=== PATIENT | female | born 1960 | race Caucasian/White ===

== ENCOUNTER 2017-05-23 10:15 | Emergency (ER) | payer SELFPAY ==
[2017-05-23] MEDS ORDERED: NITROGLYCERIN 0.4 MG TAB SL ONE (10:22)
[2017-05-23] MEDS ORDERED: SODIUM CHLORIDE 0.9% FLUSH 10 ML SOL IV PRN (10:23)
[2017-05-23] MEDS ORDERED: ASPIRIN 81 MG CHEWABLE CTB PO STA (10:23)
[2017-05-23] MEDS ORDERED: NITROGLYCERIN 0.4 MG TAB SL PRN (10:23)
[2017-05-23 10:42] VITALS: TEMP 98.3
[2017-05-23 10:44] LABS: ALBUMIN 4.7 gm/dl (3.4-5.0); ALT 58 IU/L (14-63); CALCIUM 9.7 mg/dl (8.5-10.1); GLOM FILT RATE 82 mL/min (>60); POTASSIUM 3.4 mMol/L (3.5-5.1); SODIUM 144 mMol/L (136-145)
[2017-05-23 10:52] LABS: HEMATOCRIT 45 % (35-47)
[2017-05-23 11:43] VITALS: BP 158/88; PULSE 71; RESP 18; O2SAT 97
[2017-05-25 07:48] LABS: MEAN CORPUSCULAR HGB CONC 35.1 gm/dl (32.0-36.0); MEAN CORPUSCULAR VOLUME 88 fL (81-99)
== END 2017-05-23 11:58 | disposition home or self-care (01) | DRG 313 ==
LOC: ED 10:15
DX: R07.9 Chest pain, unspecified (principal); F41.9 Anxiety disorder, unspecified; I10 Essential (primary) hypertension; R00.0 Tachycardia, unspecified
CPT/HCPCS: 71045; 80053; 82550; 83735; 84484; 85025; 93005; 99284; A9270-GY